=== PATIENT | female | born 1965 | race Caucasian/White ===

== ENCOUNTER 2017-12-30 19:46 | Emergency (ER) | payer OTHER ==
[~2017-12-30] VITALS: Ht 165.1 cm; Wt 70.3 kg
[2017-12-30] MEDS ORDERED: PANTOPRAZOLE 40 MG 10ML VIAL IV STA (20:03)
[2017-12-30] MEDS ORDERED: SODIUM CHLORIDE 0.9% 1000ML 1,000 ML IV STA (20:03)
[2017-12-30] MEDS ORDERED: ONDANSETRON HCL INJ 2 MG/ML VIAL IV STA (20:03)
[2017-12-30 20:11] LABS: BASOPHILS % 0.3 % (0.0-1.0); EOSINOPHILS # (AUTO) 0.1 (0.0-0.4); EOSINOPHILS % 1.2 % (0.0-6.0); HEMATOCRIT 43.7 % (34.2-44.1); HEMOGLOBIN 14.9 g/dL (12.0-16.0); LYMPHOCYTES # (AUTO) 1.8 (1.0-3.2); LYMPHOCYTES % 17.5 % (18.0-39.1); MEAN CORPUSCULAR HEMOGLOBIN 31.3 pg (28-32); MEAN CORPUSCULAR HGB CONC 34.1 g/dL (31-35); MEAN CORPUSCULAR VOLUME 91.8 fL (81-99); MONOCYTES # (AUTO) 1.3 (0.2-0.8); MONOCYTES % 12.7 % (4.4-11.3); NEUTROPHILS # (AUTO) 7.1 (2.1-6.9); NEUTROPHILS % 67.9 % (38.7-80.0); PLATELET COUNT 296 x10e3/uL (140-360); RED BLOOD COUNT 4.76 x10e6/uL (3.6-5.1); RED CELL DISTRIBUTION WIDTH 12.5 % (11.7-14.4)
[2017-12-30 20:15] LABS: INR 0.95; PROTHROMBIN TIME 11.9 seconds (11.9-14.5)
[2017-12-30 20:16] LABS: PARTIAL THROMBOPLASTIN TIME 25.8 seconds (23.8-35.5)
[2017-12-30 20:26] LABS: ALANINE AMINOTRANSFERASE 32 IU/L (0-55); ALBUMIN 3.8 g/dL (3.5-5.0); ALBUMIN/GLOBULIN RATIO 1.1 (0.8-2.0); ALKALINE PHOSPHATASE 74 IU/L (40-150); ANION GAP 13.7 mmol/L (8-16); BLOOD UREA NITROGEN 14 mg/dL (7-26); BUN/CREATININE RATIO 18 (6-25); CALCIUM 9.6 mg/dL (8.4-10.2); CARBON DIOXIDE 26 mmol/L (22-29); CHLORIDE 106 mmol/L (98-107); CREATINE KINASE 86 IU/L (29-168); EST GLOMERULAR FILTRATION RATE > 60 ML/MIN (60-); GLUCOSE 93 mg/dL (74-118); LIPASE 10 U/L (8-78); POTASSIUM 3.7 mmol/L (3.5-5.1); SODIUM 142 mmol/L (136-145)
[2017-12-30 20:27] LABS: CLARITY,URINE HAZY (CLEAR); COLOR,URINE YELLOW (YELLOW)
[2017-12-30 20:28] LABS: BILIRUBIN,URINE NEGATIVE (NEGATIVE); KETONES,URINE NEGATIVE (NEGATIVE); LEUKOCYTE ESTERASE ,URINE TRACE (NEGATIVE); NITRITE,URINE NEGATIVE (NEGATIVE); PROTEIN,URINE DIPSTICK NEGATIVE (NEGATIVE); URINE UROBILINOGEN 0.2 mg/dL (0.2 - 1)
[2017-12-30 20:52] LABS: EPITHELIAL CELLS,URINE MANY /LPF
[2017-12-30 20:53] LABS: BACTERIA,URINE FEW /HPF; RBC,URINE 0-5 /HPF (0-5)
[2017-12-30 20:54] LABS: AMORPHOUS SEDIMENT,URINE FEW (FEW)
== END 2017-12-30 21:50 | disposition home or self-care (01) ==
LOC: ER 19:46
DX: R11.2 Nausea with vomiting, unspecified (principal); R19.7 Diarrhea, unspecified; R10.9 Unspecified abdominal pain; N30.90 Cystitis, unspecified without hematuria
CPT/HCPCS: 36415; 80053; 81001; 82550; 82553; 83690; 83735; 84484; 85025; 85610; 85730; 87086; 99284; J2405; J7030

== ENCOUNTER → 2018-12-26 | Day surgery (SDC) | payer OTHER ==
[~2018-12-26] MED LIST: FENTANYL CITRATE/PF 100MCG/2 ML INJ ONE; HYOSCYAMINE 0.125 MG TAB ONE; LIDOCAINE HCL 2% LOCAL INJ 5 ML SDV VIAL INJ ONE; MIDAZOLAM HCL 2 MG/2 ML VIAL ONE; PROPOFOL IV EMULSION 10 MG/ML 50 ML VIAL ONE
--- OUTSIDE RECORDS SUMMARY | 2018-12-26 05:42 | XMS REPORT ---
Author Author [facility] Address Unknown Phone Unavailable Care Team Providers Care Organization Development Consultant Name Role Phone Unavailable Unavailable Problems This patient has no known problems. Allergies, Adverse Reactions, Alerts This patient has no known allergies or adverse reactions. Medications This patient has no known medications. Results Test Description Test Time Test Comments Text Results Atomic Results Result Comments MG Mammo Digital Screening Bilateral 2018-12-14 10:16:48 Patient: SRIKANTH SHELBY Date/Time12/14/2018 07:44 CDTReason for ExamZ12.31ReportLocation R 16BILATERAL SCREENING MAMMOGRAM WITH CADHistory: 53 year-old female who presents for screening mammogram.Bilateral screening mammogram with computer assisted diagnosis was performed and compared to multiple prior studies dating as far back as 01/01/2009 with most recent prior study dated 04/02/2018 .CC AND MLO views of the both breasts were obtained and interpreted.The breasts are heterogeneously dense which may obscure small masses.No evidence of new dominant mass, asymmetry, architectural distortion or suspicious microcalcifications is seen. Know, multiple breasts cysts are again seen.Impression:No mammographic evidence of malignancy.RECOMMENDATIONS: FOLLOW-UP MAMMOGRAM IN ONE YEAR IN THE ABSENCE OF CLINICAL FINDINGS.BI-RADS CATEGORY 2: Benign Final Dictated by: MD Natalio, Honey FDictated DT/TM: 12/14/2018 10:03 amSigned by: MD Natalio, Honey FSigned (Electronic Signature): 12/14/2018 10:16 am MG Mammo Digital Diagnostic Bilat 2018-04-02 09:22:43 Patient: SRIKANTH SHELBY Date/Time04/02/2018 08:05 CDTReason for ExamR92.2ReportDictation location R 16Diagnostic mammogram and bilateral breast ultrasoundCLINICAL INDICATION: Abnormal mammogramComments: Additional views of both breasts are obtained and compared to 12/12/2017.There are persistent nodular densities bilaterally.Ultrasound performed the same day including all 4 quadrants, retroareolar region and axilla show multiple cysts bilaterally. The largest cyst in the right breast is at the 6:00 position 1 cm from the nipple measuring 7 x 4 mm and the largest cyst in the left breast is retroareolar measuring 6 x 4 mm. No suspicious lesions or enlarged lymph nodes noted.IMPRESSION:1. Persistent nodular densities bilaterally corresponding to multiple cysts on ultrasound.2. No mammographic or sonographic evidence to suggest malignancy.3. ACR CATEGORY: 2-BENIGNRECOMMENDATION: Screening mammogram in one year Final Dictated by: MD Coyle Phebe CDictated DT/TM: 04/02/2018 9:22 amSigned by: MD Coyle Phebe CSigned (Electronic Signature): 04/02/2018 9:22 am US Breast Complete Right 2018-04-02 09:16:03 Patient: SRIKANTH SHELBY Date/Time04/02/2018 08:47 CDTReason for ExamR92.2ReportDictation location R 16Diagnostic mammogram and bilateral breast ultrasoundCLINICAL INDICATION: Abnormal mammogramComments: Additional views of both breasts are obtained and compared to 12/12/2017.There are persistent nodular densities bilaterally.Ultrasound performed the same day including all 4 quadrants, retroareolar region and axilla show multiple cysts bilaterally. The largest cyst in the right breast is at the 6:00 position 1 cm from the nipple measuring 7 x 4 mm and the largest cyst in the left breast is retroareolar measuring 6 x 4 mm. No suspicious lesions or enlarged lymph nodes noted.IMPRESSION:1. Persistent nodular densities bilaterally corresponding to multiple cysts on ultrasound.2. No mammographic or sonographic evidence to suggest malignancy.3. ACR CATEGORY: 2-BENIGNRECOMMENDATION: Screening mammogram in one year Final Dictated by: MD Coyle Phebe CDictated DT/TM: 04/02/2018 9:12 amSigned by: Coyle, MD, Nellie CSigned (Electronic Signature): 04/02/2018 9:16 am US Breast Complete Left 2018-04-02 09:16:03 Patient: SRIKANTH SHELBY Date/Time04/02/2018 08:47 CDTReason for ExamR92.2ReportDictation location R 16Diagnostic mammogram and bilateral breast ultrasoundCLINICAL INDICATION: Abnormal mammogramComments: Additional views of both breasts are obtained and compared to 12/12/2017.There are persistent nodular densities bilaterally.Ultrasound performed the same day including all 4 quadrants, retroareolar region and axilla show multiple cysts bilaterally. The largest cyst in the right breast is at the 6:00 position 1 cm from the nipple measuring 7 x 4 mm and the largest cyst in the left breast is retroareolar measuring 6 x 4 mm. No suspicious lesions or enlarged lymph nodes noted.IMPRESSION:1. Persistent nodular densities bilaterally corresponding to multiple cysts on ultrasound.2. No mammographic or sonographic evidence to suggest malignancy.3. ACR CATEGORY: 2-BENIGNRECOMMENDATION: Screening mammogram in one year Final Dictated by: MD Coyle Phebe CDictated DT/TM: 04/02/2018 9:12 amSigned by: MD Coyle Phebe CSigned (Electronic Signature): 04/02/2018 9:16 am MG Mammo Digital Screening Bilateral 2017-12-12 15:31:58 Patient: SRIKANTH SHELBY Date/Time12/12/2017 08:57 CDTReason for Examz12.31ReportMG Mammo Digital Screening Rmbspjojvw50.31.Dictation Location: [id number] Information: Screening mammogram. Patient reports prior cyst aspiration of both breasts in 2009. She is a massive breast cancer in a sister and mother. Patient report a family history of breast cancer in her sister and mother.Technique: Bilateral digital mammogram with computer assisted diagnosis. Bilateral CC and MLO views were obtained. A supplemental right XCCL view was obtained.Comparison: Prior mammograms dating back to 03/12/2014Findings:The breasts are heterogeneously dense, which may obscure small masses. There are bilateral breast nodules. There are no suspicious microcalcifications.IMPRESSION:Bilateral breast nodules, for which bilateral diagnostic mammogram and bilateral breast ultrasound is recommended for further evaluation.The patient will be contacted regarding need for additional imaging.ACR BI-RADS 0: INCOMPLETE. NEED ADDITIONAL IMAGING EVALUATION.RECOMMENDATION: DIAGNOSTIC BILATERAL MAMMOGRAM. BILATERAL BREAST ULTRASOUND. Final Dictated by: MD Chacon Daisha ADictated DT/TM: 12/12/2017 3:21 pmSigned by: MD Chacon Daisha ASigned (Electronic Signature): 12/12/2017 3:31 pm
[2018-12-26 09:33] VITALS: BP 143/80
--- NOTE | 2018-12-26 14:48 | Operative Report ---
DATE OF PROCEDURE: 12/26/2018 SURGEON: Flaco Kang MD PROCEDURE: Colonoscopy and polypectomy note. INDICATION FOR COLONOSCOPY: Colorectal cancer screening. MEDICATION: The patient was done under MAC, please see anesthesiologist's note. PROCEDURE IN DETAIL: With the patient in left lateral decubitus position, flexible fiberoptic Olympus colonoscope was inserted into the rectum with ease and advanced all the way to the cecum. It was then withdrawn slowly and mucosa overlying the cecum appeared to be within normal limits. Two polyps were removed per cold biopsy forceps from the hepatic flexure. Transverse appeared to be within normal limits. One polyp was removed per hot biopsy forceps from the descending colon and three polyps were removed per hot biopsy forceps from the sigmoid colon. The rectum appeared to be within normal limits. The scope was then retroflexed into the distal rectum and small internal hemorrhoids were noted, none of which was actively bleeding. The scope was then straightened out, it was subsequently withdrawn. The patient tolerated procedure well. IMPRESSION: 1. Hepatic flexure polyps x2, removed per cold biopsy forceps. 2. Descending colon polyp, removed per hot biopsy forceps. 3. Sigmoid colon polyps x3, removed per hot biopsy forceps. 4. Internal hemorrhoids, none actively bleeding. PLAN: Follow up histology. Initiate high-fiber, low-fat diet. Initiate high-fiber supplement. A total of six polyps were removed. The patient might benefit from a followup colonoscopy in 3 years. MD LORI Valencia/MELINDA /[id number] cc: Lillian Arroyo DO
== END | disposition home or self-care (01) ==
LOC: OR 05:35
PROVIDERS: ATTEND Internal Medicine Gastroenterology
DX: Z12.11 Encounter for screening for malignant neoplasm of colon (principal); K63.5 Polyp of colon; K64.8 Other hemorrhoids; R03.0 Elevated blood-pressure reading, without diagnosis of hypertension; Z01.810 Encounter for preprocedural cardiovascular examination; Z80.0 Family history of malignant neoplasm of digestive organs
CPT/HCPCS: 45380; 45384; 93005; J2001; J2250; J2704; 45378; J3010

== ENCOUNTER → 2022-09-15 | Day surgery (SDC) | payer OTHER ==
[~2022-09-15] MED LIST changes: -HYOSCYAMINE 0.125 MG TAB ONE; -LIDOCAINE HCL 2% LOCAL INJ 5 ML SDV VIAL INJ ONE; -PROPOFOL IV EMULSION 10 MG/ML 50 ML VIAL ONE; +TYLENOL325 M2 PO
[2022-09-15 15:35] VITALS: BP 122/89
== END | disposition home or self-care (01) ==
LOC: OR 11:20
PROVIDERS: ATTEND Internal Medicine Gastroenterology
DX: K29.50 Unspecified chronic gastritis without bleeding (principal); K63.5 Polyp of colon; K22.10 Ulcer of esophagus without bleeding; K22.89 Other specified disease of esophagus; K21.9 Gastro-esophageal reflux disease without esophagitis; K64.8 Other hemorrhoids; Z71.3 Dietary counseling and surveillance; R03.0 Elevated blood-pressure reading, without diagnosis of hypertension; Z71.89 Other specified counseling; Z01.810 Encounter for preprocedural cardiovascular examination; Z68.30 Body mass index [BMI] 30.0-30.9, adult; Z80.0 Family history of malignant neoplasm of digestive organs
CPT/HCPCS: 43239; 45380; 93005; C9113; J2250; J3010; 45378